=== PATIENT | female | born 1955 | race Caucasian/White ===

== ENCOUNTER 2023-07-16 07:44 | Outpatient (REF) | payer MEDICARE, SELFPAY ==
--- NOTE | ~2023-07-16 | FL_ITS ---
EXAMINATION: XR FLUOROSCOPY BARIUM SWALLOW WITH AIR CLINICAL INFORMATION: Patient with numerous complaints, dysphasia, epigastric pain, GERD COMPARISON: None TECHNIQUE: Fluoroscopic air contrast barium swallow examination was performed utilizing standard techniques with thin and thick barium and effervescent granules. Numerous spot images were obtained. FINDINGS: The patient refused a 13 mm barium tablet. Lateral cine images of the oropharynx and hypopharynx demonstrate normal swallow mechanism with normal epiglottic inversion and soft palate elevation. No tracheal penetration, glottic or subglottic aspiration identified. No nasopharyngeal reflux present. Hypopharyngeal structures appear normal without evidence of mass or diverticulum. There was mild cricopharyngeal achalasia. Dual and single contrast images of the esophagus demonstrate normal caliber, contour, and mucosal pattern. No evidence of stricture, mass, or ulcerations identified. Esophageal peristalsis was somewhat disordered after the primary peristaltic wave. The lower esophageal sphincter relaxed normally. No evidence of hiatus hernia identified. Mild gastroesophageal reflux was seen during the course of the examination to the level of the mica. Dual contrast and single contrast images of the stomach demonstrated normal contour and mucosal pattern without evidence of mass, ulceration, or other abnormality. Contrast freely passed into the gastric antrum and duodenal bulb without delay. Single and air-contrast images of the duodenal bulb demonstrate no abnormality. The duodenal sweep has a normal appearance, course, and mucosal fold appearance. The imaged proximal jejunum has a normal fold pattern and caliber. FLUOROSCOPY TIME: 4 minutes 5 seconds Number of Spot Images: 19 spot images taken, 5 fluoroscopic image old cine runs obtained. DOSE AREA PRODUCT: 1548 uGy-m2 (microgray-meter squared) FL/FL barium swallow IMPRESSION: 1. Mild cricopharyngeal achalasia. Hypopharyngeal swallow otherwise normal. 2. 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 3. Esophagus otherwise normal without stricture, mass, or mucosal abnormality. 4. No definite hiatus hernia. Mild gastroesophageal reflux evident.
== END 2023-07-16 07:45 | disposition home or self-care (01) ==
LOC: HO.XRAY 07:44
PROVIDERS: Visit Provider Internal Medicine Gastroenterology
DX: R13.10 Dysphagia, unspecified (principal)
CPT/HCPCS: 74220

== ENCOUNTER → 2023-07-16 07:47 | Outpatient (BNV) | payer MEDICARE, SELFPAY | PROVIDERS: Visit Provider Radiology Diagnostic Radiology | DX: R13.10 Dysphagia, unspecified (principal) | CPT/HCPCS: 74221 ==